=== PATIENT | male | born 1985 | race Caucasian/White ===

== ENCOUNTER 2021-02-07 12:47 | Day surgery (SDC) | payer OTHER ==
[~2021-02-07] VITALS: Ht 180.3 cm; Wt 104.3 kg
[~2021-02-07 12:47] MED LIST: CEPHALEXIN500 MG PO; IBUPROFEN 800800 M1 PO
[2021-02-07 13:30] VITALS: BP 140/90
[2021-02-07] MEDS ORDERED: HYDROCODON-ACE1 EAC7 PO (15:14)
--- NOTE | 2021-02-11 14:06 | O ---
[facility] [place] [address] OPERATIVE REPORT Name: DULCE GONZALEZ Room #: DEP [facility].#: [id number] Admission: 02/07/21 Attend Phys: Jorge Silva MD Discharge: 02/07/21 Date of : 89 Report #: [id number] THIS REPORT FOR: cc: Physician not on staff Physician not on staff Jorge Silva MD ~ DOC #: [id number] Jorge Silva MD DATE OF SERVICE: 02/07/2021 PREOPERATIVE DIAGNOSES: 1. Lipoma, right forearm. 2. Lipoma right distal upper arm. POSTOPERATIVE DIAGNOSES: 1. Lipoma, right forearm. 2. Lipoma right distal upper arm. PROCEDURES PERFORMED: 1. Excision of 3.5 cm lipoma, right forearm. 2. Excision of 1.5 cm lipoma, right distal upper arm. ANESTHESIA: IV sedation, local anesthetic. COMPLICATIONS: None. BLOOD LOSS: 5 mL. DESCRIPTION OF PROCEDURE NOTE: With the patient under IV sedation, the right arm was prepped and draped in sterile fashion. Timeout was performed. Preoperative IV antibiotic was given. 0.25% Marcaine was used to anesthetize the skin and subcutaneous tissue. The right forearm mass was removed first. A 2.5 cm incision was made after incising through the skin and subcutaneous tissue. The lipoma was identified in the deep subcu. The lipoma was isolated with a scissor and blunt it from the surrounding subcutaneous fat. The lipoma was then delivered without difficulty. The lipoma was removed intact. There is a lobulation present. Hemostasis obtained with cautery. The subcutaneous tissue was closed with 4-0 PDS and the skin was closed with 5-0 PDS running subcuticular fashion. The right upper arm was then removed. Local anesthetic was placed over this. An incision was made over the lipoma. Lipoma was identified by distinct capsule and the lipoma was from the subcutaneous without difficulty and delivered out of the wound. Hemostasis obtained with cautery. Skin was closed with 5-0 PDS interrupted subcuticular fashion. [address] [address] OPERATIVE REPORT Name: DULCE GONZALEZ Room #: DEP [facility]..#: [id number] Admission: 02/07/21 Attend Phys: Jorge Silva MD Discharge: 02/07/21 Date of : 89 Report #: [id number] COMPLICATIONS: None. Steri-Strips were applied. Telfa, 4 x 4, OpSite used for dressing. The patient was awakened and taken to recovery room, tolerated the procedure well. Jorge Silva MD PY[employer]ore/GABRIEL <ELECTRONICALLY SIGNED> By: Jorge Silva MD 02/11/21 1406 1351 1637 Jorge Silva MD /vy
--- NOTE | 2021-02-11 19:07 | PATH ---
[facility] [address] [place] [address] PATHOLOGY RPT PROCEDURE Name: DULCE GONZALEZ Arabella Room #: DEP [facility] M.R.#: [id number] Admission: 02/07/21 Date of : 89 Discharge: 02/07/21 Report #: [id number] Path Case #: [id number] [facility] Accession Number: [id number] . 01 Material submitted: . arm - RIGHT ARM LIPOMA. Modifiers: right . 01 Clinician provided ICD-10: D17.2 R22.31 . 01 Clinical history: . EXCISION MASS . 02 Diagnosis: Mature adipose tissue, right arm lipoma, excision: - Mature adipose tissue along with numerous vessels, compatible with an angiolipoma. . (IUV:mml; 02/11/2021) QLM 02/11/2021 1251 Local . 02 Electronically signed: . Pilar Roberts MD, Pathologist NPI- [id number] . 01 Gross description: . Fixative: formalin Labeled: Right arm lipoma Specimen received: 2 intact pieces Dimensions: 3.3 x 2.1 x 0.9 cm and 1.6 x 1.2 x 0.7 cm External surface: Mcfarlane-yellow and lobular with a smooth translucent membrane which is inked black Cut surface: Homogenous, mcfarlane yellow cut surface without hemorrhage or necrosis grossly identified . Toxicology Teacher sections are submitted in A1-A2. ([facility]; 02/09/2021) . GZA/GZA 02/09/2021 0957 Local . 02 Pathologist provided ICD-10: D17.20, R22.31 . 02 CPT . 027836 Specimen Comment: A courtesy copy of this report has been sent to [phone] Specimen Comment: Report sent to [address] [address] PATHOLOGY RPT PROCEDURE Name: GONZALEZDULCE Room #: DEP [facility] Chasity#: [id number] Admission: 02/07/21 Date of : 89 Discharge: 02/07/21 Report #: [id number] Path Case #: [id number] Performed at: 01 [facility] [address], [place] [id number] MD Antoine Turner MD Phone: [phone] Performed at: [address] [id number] MD Pilar Roberts MD Phone: [phone]
== END 2021-02-07 16:30 | disposition home or self-care (01) ==
LOC: TBA 12:47 → OR 12:47 → TBA 12:48 → OR 14:16
PROVIDERS: ATTEND Surgery
DX: D17.21 Benign lipomatous neoplasm of skin and subcutaneous tissue of right arm (principal); Z98.890 Other specified postprocedural states
CPT/HCPCS: 50010; 50101; 50386; 50417; 56524; 56525; 62110; 62850; 70005